=== PATIENT | male | born 1990 | race Two or more races ===

== ENCOUNTER 2020-02-06 18:14 | Emergency (ER) | payer MEDICAID ==
[~2020-02-06] VITALS: Ht 182.9 cm; Wt 110.2 kg
[2020-02-06 18:45] VITALS: BP 142/81
== END 2020-02-06 20:13 | disposition home or self-care (01) ==
LOC: ER 18:16
DX: J18.9 Pneumonia, unspecified organism (principal)
CPT/HCPCS: 71045-TC

== ENCOUNTER 2022-02-27 18:55 | Emergency (ER) | payer MEDICAID, OTHER ==
[~2022-02-27] VITALS: Ht 182.9 cm; Wt 90.7 kg
--- NOTE | 2022-02-27 19:20 | NUR ---
PT BIBSELF C/O MID ABD PAIN AND DIARRHEA X FRIDAY. PT AAOX4 BREATHING EVENLY AND UNLABORED. PT ENDORSES NO CHANGE IN DIET. SKIN IS WARM AND DRY. PT ATTACHED TO MONITOR AND POX.
[2022-02-27] MEDS ORDERED: IV NS 0.9% 1,000 ML BAG IV ONE (19:30)
[2022-02-27] MEDS ORDERED: ONDANSETRON HCL/PF 4 MG/2 ML VIAL IVP ONE (19:30)
[2022-02-27] MEDS ORDERED: ONDANSETRON HCL/PF 4 MG/2 ML VIAL ONE (19:32)
--- NOTE | 2022-02-27 19:40 | NUR ---
US AT BEDSIDE
--- NOTE | 2022-02-27 19:50 | NUR ---
BLOOD SENT TO LAB
[2022-02-27 20:25] LABS: CALCIUM, SERUM 8.6 mg/dL (8.5-10.1); CREATININE 0.9 mg/dL (0.6-1.3); POTASSIUM 3.7 mmol/L (3.5-5.1)
[2022-02-27 20:33] LABS: ALBUMIN 3.7 g/dL (3.4-5.0); BASOPHILS % (AUTO) 0.5 % (0.0-2.0); BILIRUBIN,DIRECT 0.1 mg/dL (0.0-0.2); BILIRUBIN,TOTAL 0.4 mg/dL (0.2-1.0); HEMATOCRIT 43 % (39-51); HEMOGLOBIN 14.6 g/dL (13.5-17.5); LYMPHOCYTES # (AUTO) 1.8 K/uL (0.8-4.8); LYMPHOCYTES % (AUTO) 34.3 % (20.0-44.0); MEAN CORPUSCULAR HGB CONC 34 g/dl (31.0-36.0); MEAN CORPUSCULAR VOLUME 93 fL (80-96); MONOCYTES # (AUTO) 0.6 K/uL (0.1-1.30); NEUTROPHILS # (AUTO) 2.7 K/uL (1.8-8.9); NEUTROPHILS % (AUTO) 51.2 % (43.0-81.0); PLATELET COUNT (AUTO) 230 K/uL (150-450); RED BLOOD CELL COUNT(AUTO) 4.61 MIL/uL (4.5-6.0); TOTAL PROTEIN, SERUM 7.7 g/dL (6.4-8.2); WHITE BLOOD COUNT (AUTO) 5.2 K/uL (4.3-11.0)
[2022-02-27 20:54] LABS: BILIRUBIN,URINE NEGATIVE (NEGATIVE); COLOR,URINE YELLOW (YELLOW); LEUKOCYTE ESTERASE ,URINE NEGATIVE (NEGATIVE); NITRITE, URINE NEGATIVE (NEGATIVE); PH,URINE 6.5 (5.0-8.0); PROTEIN,URINE NEGATIVE (NEGATIVE); UGLUCOSE NEGATIVE (NEGATIVE)
[2022-02-27] MEDS ORDERED: DICYCLOMINE HCL INJ 20 MG/2 ML AMPUL IM ONE ×2 (21:30→21:48)
[2022-02-27] MEDS ORDERED: ONDA4TAB5 PO (21:41)
--- NOTE | 2022-02-27 21:47 | NUR ---
Patient discharged to home in stable condition. Written and verbal after care instructions given. Patient verbalizes understanding of instruction. IV removed. Catheter intact and site benign. Pressure and 4x4 applied to site. No bleeding noted. PT ambulatory with a steady gait
[2022-02-27 22:02] VITALS: BP 138/85
== END 2022-02-27 21:47 | disposition home or self-care (01) ==
LOC: ER 19:06
DX: A05.9 Bacterial foodborne intoxication, unspecified (principal); Z79.899 Other long term (current) drug therapy
CPT/HCPCS: 36415; 76700; 80048; 80076; 81003; 83690; 85025; 96361; 96372; 96374; 99285; J0500; J2405; J7030

== ENCOUNTER 2024-06-26 03:54 | Emergency (ER) | payer OTHER ==
[~2024-06-26] VITALS: Ht 182.9 cm; Wt 90.7 kg
[~2024-06-26 03:54] MED LIST: ONDA4TAB5 PO
[2024-06-26 04:58] LABS: BASOPHILS % (AUTO) 0.5 % (0.0-2.0); EOSINOPHILS # (AUTO) 0.1 K/uL (0.0-0.7); EOSINOPHILS % (AUTO) 0.7 % (0.0-6.0); HEMATOCRIT 43 % (39-51); HEMOGLOBIN 14.3 g/dL (13.5-17.5); LYMPHOCYTES # (AUTO) 1.9 K/uL (0.8-4.8); LYMPHOCYTES % (AUTO) 26.5 % (20.0-44.0); MEAN CORPUSCULAR HEMOGLOBIN 31 PG (26.0-33.0); MEAN CORPUSCULAR HGB CONC 34 g/dl (31.0-36.0); MEAN CORPUSCULAR VOLUME 93 fL (80-96); MONOCYTES # (AUTO) 0.6 K/uL (0.1-1.30); MONOCYTES % (AUTO) 8.5 % (2.0-12.0); NEUTROPHILS # (AUTO) 4.5 K/uL (1.8-8.9); NEUTROPHILS % (AUTO) 63.8 % (43.0-81.0); PLATELET COUNT (AUTO) 238 K/uL (150-450); RED BLOOD CELL COUNT(AUTO) 4.57 MIL/uL (4.5-6.0); WHITE BLOOD COUNT (AUTO) 7.1 K/uL (4.3-11.0)
[2024-06-26 05:05] LABS: CALCIUM, SERUM 9.1 mg/dL (8.5-10.1); CARBON DIOXIDE 29 mmol/L (21-32); CHLORIDE 102 mmol/L (98-107); CREATININE 0.9 mg/dL (0.6-1.3); GLUCOSE 104 mg/dL (74-106); POTASSIUM 3.9 mmol/L (3.5-5.1); SODIUM SERUM 138 mmol/L (136-145); UREA NITROGEN, BLOOD 10 mg/dL (7-18)
[2024-06-26 05:11] LABS: ALANINE AMINOTRANSFERASE 22 U/L (12-78); ALBUMIN 3.9 g/dL (3.4-5.0); ALKALINE PHOSPHATASE 136 U/L (46-116); ASPARTATE AMINOTRANSFERASE 18 U/L (15-37); BILIRUBIN,DIRECT 0.1 mg/dL (0.0-0.2); BILIRUBIN,TOTAL 0.3 mg/dL (0.2-1.0); D-DIMER < 0.19 mg/L(FEU (0.17-0.50); INR 1.02 (0.91-1.10); PARTIAL THROMBOPLASTIN TIME 27.3 SEC (24.3-34.3); PROTHROMBIN TIME 10.8 SECS (9.2-11.1); TOTAL PROTEIN, SERUM 8.1 g/dL (6.4-8.2)
[2024-06-26 10:49] VITALS: BP 118/77; TEMP 98.6; O2SAT 98
== END 2024-06-26 10:49 | disposition home or self-care (01) ==
LOC: ER 03:59
DX: R07.9 Chest pain, unspecified (principal); R42 Dizziness and giddiness; R94.31 Abnormal electrocardiogram [ECG] [EKG]
CPT/HCPCS: 36415; 71045-TC; 80048-TC; 80076-TC; 84484-TC; 85025-TC; 85378-TC; 85730-TC